=== PATIENT | female | born 1945 | race Caucasian/White ===

== ENCOUNTER → 2020-12-26 | Outpatient (CLI) | payer OTHER, MEDICARE ==
[~2020-12-26] MED LIST: AMLODIPINE BESY10 MG PO; ASPIRIN EC81 M1 PO; COREG12.5 MG PO; DEPAKOTE 250MG250 M1 PO; ONDANSETRON HCL4 M2 PO; PRINIVIL20 MG PO; PROTONIX40 MG PO; PROZAC20 MG PO; SIMVASTATIN40 MG PO; VALTREX1000 MG PO
== END ==
LOC: SJCVCIMAG 10:13
PROVIDERS: ATTEND Internal Medicine Cardiovascular Disease
DX: I35.8 Other nonrheumatic aortic valve disorders (principal); I25.10 Atherosclerotic heart disease of native coronary artery without angina pectoris; I10 Essential (primary) hypertension; E78.00 Pure hypercholesterolemia, unspecified; R06.00 Dyspnea, unspecified; R55 Syncope and collapse; M48.00 Spinal stenosis, site unspecified; G62.9 Polyneuropathy, unspecified; I26.99 Other pulmonary embolism without acute cor pulmonale; Z79.899 Other long term (current) drug therapy; Z87.891 Personal history of nicotine dependence; Z72.89 Other problems related to lifestyle; Z82.49 Family history of ischemic heart disease and other diseases of the circulatory system; Z88.5 Allergy status to narcotic agent; Z88.1 Allergy status to other antibiotic agents; Z88.2 Allergy status to sulfonamides